=== PATIENT | female | born 1965 | race Caucasian/White ===

== ENCOUNTER 2016-09-11 19:38 | Emergency (ER) | payer BC ==
[2016-09-11 20:14] LABS: HEMATOCRIT 42.4 % (36.0-47.0); HEMOGLOBIN 14.4 g/dL (12.0-15.5); HGB HCT DIFFERENCE 0.8; MEAN CORPUSCULAR HEMOGLOBIN 28.5 pg (27.0-33.4); MEAN CORPUSCULAR HGB CONC 33.9 g/dL (32.0-36.0); MEAN CORPUSCULAR VOLUME 84 fl (80-97); RED BLOOD COUNT 5.04 10^6/uL (3.72-5.28); WHITE BLOOD COUNT 17.1 10^3/uL (4.0-10.5)
[2016-09-11 20:21] LABS: ALANINE AMINOTRANSFERASE 46 U/L (9-52); ALBUMIN 4.2 g/dL (3.5-5.0); ALKALINE PHOSPHATASE 84 U/L (38-126); ANION GAP 12 (5-19); ASPARTATE AMINO TRANSFERASE 39 U/L (14-36); BILIRUBIN,TOTAL 0.8 mg/dL (0.2-1.3); BLOOD UREA NITROGEN 4 mg/dL (7-20); CALCIUM 9.2 mg/dL (8.4-10.2); CARBON DIOXIDE 23 mmol/L (22-30); CHLORIDE 99 mmol/L (98-107); CREATINE KINASE 77 U/L (30-135); CREATININE RESULT 0.61 mg/dL (0.52-1.25); GLUCOSE 153 mg/dL (75-110); POTASSIUM 3.1 mmol/L (3.6-5.0); SODIUM 134.2 mmol/L (137-145); TOTAL PROTEIN 6.8 g/dL (6.3-8.2)
[2016-09-11 20:28] LABS: BAND NEUTROPHILS % (MANUAL) 4 % (3-5); BASOPHILS % (MANUAL) 0 % (0-2); EOSINOPHILS % (MANUAL) 0 % (0-6); LYMPHOCYTES % (MANUAL) 2 % (13-45); TOTAL CELLS COUNTED 100
[2016-09-11 20:29] LABS: PLATELET CLUMPS PRESENT; RBC MORPHOLOGY COMMENT NORMO-CYTIC/CHROMIC
[2016-09-11 20:33] LABS: CREATINE KINASE MB 0.24 ng/mL (<4.55); TROPONIN I < 0.012 ng/mL
--- NOTE | 2016-09-11 20:40 | ER Document Report ---
ED Dizziness/Weakness - General Mode of Arrival: Ambulatory Information source: Patient <NICKO CARTAGENA - Last Filed: 09/11/16 22:12> <BASIM LEBLANC - Last Filed: 09/11/16 23:17> - General Chief Complaint: Dizziness Stated Complaint: DIZZINESS Notes: Patient is a 51-year-old female that presents to the emergency department today with complaints of flu-like symptoms including chills, fevers, dizziness, weakness, cough, nasal congestion, and a sore throat. Patient states her grandson was at home over the last week sick with similar symptoms but he was never taken the doctor so she does not know if he had influenza. Patient states she did not receive a flu shot this year. (MITZINICKO) Past Medical History - General Information source: Patient - Social History Smoking Status: Current Every Day Smoker Cigarette use (# per day): Yes Frequency of alcohol use: Social Drug Abuse: None Lives with: Family Family History: Reviewed & Not Pertinent Patient has suicidal ideation: No Patient has homicidal ideation: No - Past Medical History Cardiac Medical History: Reports: Hx Heart Attack, Hx Hypercholesterolemia Neurological Medical History: Reports: Hx Seizures Past Surgical History: Reports: Hx Orthopedic Surgery - back - Immunizations Hx Diphtheria, Pertussis, Tetanus Vaccination: Yes <NICOLASA CARTAGENAON - Last Filed: 09/11/16 22:12> Review of Systems - Review of Systems Constitutional: See HPI, Fever EENT: See HPI, Nose congestion, Throat pain Cardiovascular: No symptoms reported Respiratory: See HPI, Cough Gastrointestinal: See HPI, Diarrhea Genitourinary: No symptoms reported Female Genitourinary: No symptoms reported Musculoskeletal: No symptoms reported Skin: No symptoms reported Hematologic/Lymphatic: No symptoms reported Neurological/Psychological: No symptoms reported -: Yes All other systems reviewed and negative <MITZINICKO - Last Filed: 09/11/16 22:12> Physical Exam - Vital signs Interpretation: Normal - General General appearance: Appears well, Alert - HEENT Head: Normocephalic, Atraumatic Eyes: Normal Pupils: PERRL Nasal: Other - congestion Mucous membranes: Dry - Respiratory Respiratory status: No respiratory distress Chest status: Nontender Breath sounds: Normal Chest palpation: Normal - Cardiovascular Rhythm: Regular Heart sounds: Normal auscultation Murmur: No - Abdominal Inspection: Normal Distension: No distension Bowel sounds: Normal Tenderness: Nontender Organomegaly: No organomegaly - Back Back: Normal, Nontender - Extremities General upper extremity: Normal inspection, Nontender, Normal color, Normal ROM , Normal temperature General lower extremity: Normal inspection, Nontender, Normal color, Normal ROM , Normal temperature, Normal weight bearing. No: Areli's sign - Neurological Neuro grossly intact: Yes Cognition: Normal Orientation: AAOx4 [place] Coma Scale Eye Opening: Spontaneous Nick Coma Scale Verbal: Oriented Nick Coma Scale Motor: Obeys Commands Nick Coma Scale Total: 15 Speech: Normal Motor strength normal: LUE, RUE, LLE, RLE Sensory: Normal - Psychological Associated symptoms: Normal affect, Normal mood - Skin Skin Temperature: Warm Skin Moisture: Dry Skin Color: Normal <BASIM LEBLANC - Last Filed: 09/11/16 23:17> - Vital signs Vitals: Temp 98.8 F 09/11/16 19:40 Course - Laboratory Result Diagrams: 09/11/16 19:47 09/11/16 19:47 <NICKO CARTAGENA - Last Filed: 09/11/16 22:12> - Laboratory Result Diagrams: 09/11/16 19:47 09/11/16 19:47 - Diagnostic Test Radiology reviewed: Reports reviewed - EKG Interpretation by Oh EKG shows normal: Sinus rhythm Rate: Normal Rhythm: NSR <BASIM LEBLANC - Last Filed: 09/11/16 23:17> - Re-evaluation Re-evalutation: 09/11/16 23:16 Patient with influenza-like illness. Vitals particularly oxygen saturation within normal limits. Chest x-ray with no acute findings. Patient will be discharged home and is to take [id number] medications. (BASIM LEBLANC) - Vital Signs Vital signs: Temp Pulse Resp BP Pulse Ox 98.8 F 91 16 136/82 H 95 09/11/16 19:40 09/11/16 20:31 09/11/16 22:00 09/11/16 20:31 09/11/16 22:00 - Laboratory Laboratory results interpreted by ar: 09/11/16 09/11/16 19:47 19:47 WBC 17.1 H Seg Neuts % (Manual) 89 H Lymphocytes % (Manual) 2 L Abs Neuts (Manual) 15.9 H Sodium 134.2 L Potassium 3.1 L BUN 4 L Glucose 153 H AST 39 H Discharge <NICKO CARTAGENA - Last Filed: 09/11/16 22:12> <BASIM LEBLANC - Last Filed: 09/11/16 23:17> - Discharge Clinical Impression: Influenza-like illness Condition: Stable Disposition: HOME, SELF-CARE Instructions: Influenza ([facility]), Dizziness ([facility]) Scribe Attestation: 09/11/16 23:17 I personally performed the services described in the documentation, reviewed and edited the documentation which was dictated to the scribe in my presence, and it accurately records my words and actions. (BASIM LEBLANC) Scribe Documentation - Scribe Written by Scribe:: Prashanth Youngblood, 09/11/2016 2215 acting as scribe for :: Leon <NICKO CARTAGENA - Last Filed: 09/11/16 22:12>
[2016-09-11 20:44] LABS: APPEARANCE,URINE CLEAR; BILIRUBIN,URINE NEGATIVE (NEGATIVE); GLUCOSE, URINE NEGATIVE (NEGATIVE); KETONES,URINE NEGATIVE (NEGATIVE); LEUKOCYTE ESTERASE,URINE NEGATIVE (NEGATIVE); NITRITE,URINE NEGATIVE (NEGATIVE); PROTEIN,URINE NEGATIVE (NEGATIVE); URINE SPECIFIC GRAVITY 1.003; UROBILINOGEN,URINE NEGATIVE mg/dL (<2.0)
[2016-09-11] MEDS ORDERED: KETOROLAC TROMETHAMINE INJ/PF 30 MG/1 ML SDV IV ONE (21:34)
[2016-09-11] MEDS ORDERED: NORMAL SALINE 1000 ML 1,000 ML IV ONE (21:34)
[2016-09-11] MEDS ORDERED: ONDANSETRON HCL INJ/PF 4 MG/2 ML SDV IV ONE (21:34)
[2016-09-11 22:41] VITALS: BP 130/84
--- NOTE | 2016-09-12 08:23 | EKG REPORT ---
SEVERITY:- BORDERLINE ECG - SINUS RHYTHM PROBABLE LEFT ATRIAL ABNORMALITY CONSIDER ANTERIOR INFARCT OLD : Confirmed by: Chema Morin MD 12-Sep-2016 08:21:51
== END 2016-09-11 23:26 | disposition home or self-care (01) ==
LOC: ER 19:38
DX: J11.1 Influenza due to unidentified influenza virus with other respiratory manifestations (principal); R42 Dizziness and giddiness; R50.9 Fever, unspecified; R05 Cough; R09.81 Nasal congestion; J02.9 Acute pharyngitis, unspecified; F17.210 Nicotine dependence, cigarettes, uncomplicated
CPT/HCPCS: 93005; 99284; 96361; 96374; 96375; 36415; 87040; 82553; 82550; 85025; 80053; 81001; 84484; 83605; 87804; 71020; 93010; J1885; J2405; J7030